=== PATIENT | male | born 1960 | race Caucasian/White ===

== ENCOUNTER 2017-12-24 13:37 | Observation (INO) | payer BC ==
[2017-12-24 14:05] LABS: Basophils % (A) 1 %; Eosinophils # (A) 0.2 k/uL (0-0.7); Eosinophils % (A) 3 %; HCT 42.5 % (39.0-53.0); HGB 14.2 gm/dL (13.0-17.5); Lymphocytes # (A) 1.3 k/uL (1.0-4.8); Lymphocytes % (A) 19 %; MCH 31.4 pg (25.0-35.0); MCHC 33.4 g/dL (31.0-37.0); MCV 93.9 fL (80.0-100.0); Mean Platelet Volume 7.4; Monocytes # (A) 0.5 k/uL (0-1.0); Monocytes % (A) 7 %; Neutrophils # (A) 4.8 k/uL (1.3-7.7); Neutrophils % (A) 69 %; Platelet Count 179 k/uL (150-450); RBC 4.52 m/uL (4.30-5.90); RDW 13.1 % (11.5-15.5); WBC 6.9 k/uL (3.8-10.6)
--- NOTE | 2017-12-24 14:06 | ED ---
Chest Pain HPI - General Chief Complaint: Chest Pain Stated Complaint: CARDIAC ISSUES Time Seen by Provider: 12/24/17 13:38 Source: EMS, RN notes reviewed, old records reviewed Mode of arrival: EMS Limitations: no limitations - History of Present Illness Initial Comments: This is a 57-year-old male the ER for evaluation chest pain anterior chest pain left-sided chest pain with radiation to arm. Patient has history of heart disease feels like prior [place]. No recent travel history no sick contacts of fever cough or congestion. No modifying factors currently for patient's pain MD Complaint: chest pain -: days(s) Onset: during rest Pain Location: substernal, left chest Pain Radiation: LUE Severity: mild Severity scale (1-10): 3 Quality: tightness, similar to prior [place] Improves With: nothing Worsens With: nothing Anginal Symptoms: dyspnea Other Symptoms: palpitations Treatments Prior to Arrival: none - Related Data Home Medications Medication Instructions Recorded Confirmed Nitroglycerin Sl Tabs [Nitrostat] 0.4 mg SUBLINGUAL Q5M PRN 12/23/15 12/24/17 Lisinopril [Zestril] 10 mg PO DAILY 12/24/17 12/24/17 Metoprolol Tartrate 25 mg PO BID 12/24/17 12/24/17 Ticagrelor [Brilinta] 60 mg PO TID 12/24/17 12/24/17 Previous Rx's Medication Instructions Recorded Atorvastatin [Lipitor] 80 mg PO HS #30 tab 07/27/13 Allergies Allergy/AdvReac Type Severity Reaction Status Date / Time No Known Allergies Allergy Verified 12/24/17 14:39 Review of Systems ROS Statement: Those systems with pertinent positive or pertinent negative responses have been documented in the HPI. ROS Other: All systems not noted in ROS Statement are negative. EKG Findings - EKG Comments: EKG Findings:: EKG shows sinus rhythm rate of 66, [place] 180, QRS 100, QTC 436 Past Medical History Past Medical History: Coronary Artery Disease (CAD), Hyperlipidemia, Hypertension History of Any Multi-Drug Resistant Organisms: None Reported Past Surgical History: Coronary Bypass/CABG, Heart Catheterization With Stent, Hernia Repair Additional Past Surgical History / Comment(s): Stent placed on 07/23/2013. Hernia repair at very young age Past Anesthesia/Blood Transfusion Reactions: No Reported Reaction Date of Last Stent Placement:: 07/23/2013 Past Psychological History: Anxiety Smoking Status: Former smoker Past Alcohol Use History: Occasional Past Drug Use History: None Reported - Past Family History Mother Family Medical History: Coronary Artery Disease (CAD), Hyperlipidemia, Hypertension General Exam Limitations: no limitations General appearance: alert, in no apparent distress, anxious Head exam: Present: atraumatic, normocephalic, normal inspection Eye exam: Present: normal appearance, PERRL, EOMI. Absent: scleral icterus, conjunctival injection, periorbital swelling ENT exam: Present: normal exam, mucous membranes moist Neck exam: Present: normal inspection. Absent: tenderness, meningismus, lymphadenopathy Respiratory exam: Present: normal lung sounds bilaterally. Absent: respiratory distress, wheezes, rales, rhonchi, stridor Cardiovascular Exam: Present: regular rate, normal rhythm, normal heart sounds. Absent: systolic murmur, diastolic murmur, rubs, gallop, clicks GI/Abdominal exam: Present: soft, normal bowel sounds. Absent: distended, tenderness, guarding, rebound, rigid Extremities exam: Present: normal inspection, full ROM, normal capillary refill. Absent: tenderness, pedal edema, joint swelling, calf tenderness Back exam: Present: normal inspection Neurological exam: Present: alert, oriented X3, CN II-XII intact Psychiatric exam: Present: normal affect, normal mood Skin exam: Present: warm, dry, intact, normal color. Absent: rash Course Vital Signs 12/24/17 12/24/17 12/24/17 13:39 14:56 16:42 Temperature 98.1 F 97.1 F L 97.4 F L Pulse Rate 58 L 58 L 57 L Respiratory 18 18 18 Rate Blood Pressure 168/77 155/74 183/77 O2 Sat by Pulse 95 98 100 Oximetry - Reevaluation(s) Reevaluation #1: Medical records thoroughly reviewed Patient remains a chest pain Studies Chest x-rays negative for acute disease Chest Pain MDM - MDM 57 male the ER for evaluation positive history of heart disease coming of chest pain. Patient be admitted for cardiac observation anticoagulation Critical Care Time Critical Care Time: Yes Total Critical Care Time: 31 Disposition Clinical Impression: Hx of CABG, Chest pain Disposition: ADMITTED IP TO THIS HOSP Condition: Undetermined Is patient prescribed a controlled substance at d/c from ED?: No
[2017-12-24 14:17] LABS: ALT 41 U/L (21-72); AST 35 U/L (17-59); Albumin 3.8 g/dL (3.5-5.0); Alkaline Phosphatase 67 U/L (38-126); Anion Gap 8 mmol/L; Blood Urea Nitrogen 18 mg/dL (9-20); Calcium 9.4 mg/dL (8.4-10.2); Carbon Dioxide 25 mmol/L (22-30); Chloride 107 mmol/L (98-107); Glucose 110 mg/dL (74-99); Lipase 240 U/L (23-300); Magnesium 1.9 mg/dL (1.6-2.3); Potassium 4.7 mmol/L (3.5-5.1); Sodium 140 mmol/L (137-145); Total Bilirubin 0.6 mg/dL (0.2-1.3); Total Protein 6.6 g/dL (6.3-8.2)
[2017-12-24 14:28] LABS: Creatine Kinase 58 U/L (55-170)
--- NOTE | 2017-12-24 14:33 | XR ---
EXAMINATION TYPE: XR chest 2V DATE OF EXAM: 12/24/2017 COMPARISON: Prior chest x-ray 11/08/2013 HISTORY: Chest pain TECHNIQUE: Frontal and lateral views of the chest are obtained. FINDINGS: There are overlying cardiac leads. Patient is post median sternotomy. There is no focal air space opacity, pleural effusion, or pneumothorax seen. The cardiac silhouette size is within normal limits. The osseous structures are intact. IMPRESSION: No acute cardiopulmonary process.
[2017-12-24 14:41] LABS: Creatine Kinase MB 0.5 ng/mL (0.0-2.4); Troponin I <0.012 ng/mL (0.000-0.034)
[2017-12-24 15:05] LABS: Partial Thromboplastin Time 22.6 sec (22.0-30.0); Prothrombin Time 9.8 sec (9.0-12.0)
[2017-12-24] MEDS ORDERED: MORPHINE SULFATE 4 MG/ML SYRINGE IV PRN (16:08)
[2017-12-24] MEDS ORDERED: ASPIRIN 81 MG PO STA (16:08)
[2017-12-24] MEDS ORDERED: HEPARIN SODIUM,PORCINE 5,000 UNIT/ML 1 ML VIAL IV ONE (16:08)
[2017-12-24] MEDS ORDERED: NITROGLYCERIN SL TABS 0.4 MG TAB SUBLINGUAL PRN ×2 (16:08→18:57)
[2017-12-24] MEDS ORDERED: HEPARIN SODIUM,PORCINE 5,000 UNIT/ML 1 ML VIAL IV PRN (16:08)
[2017-12-24] MEDS ORDERED: BUTALB/APAP/CAFF 50-325-40MG TAB PO STA (16:27)
[2017-12-24] MEDS ORDERED: HEPARIN SOD,PORK IN 0.45% NACL 25,000 UNIT in 0.45% NACL 1 500ML.BAG IV SCH (16:30)
[2017-12-24] MEDS ORDERED: hydrALAZINE HCL 25 MG TAB PO PRN (18:58)
[2017-12-24 20:02] VITALS: RESP 16
[2017-12-24] MEDS ORDERED: ACETAMINOPHEN TAB 325 MG TAB PO PRN (20:04)
[2017-12-24] MEDS: METOPROLOL TARTRATE 25 MG TAB PO SCH (20:18)
[2017-12-24 20:49] LABS: Creatine Kinase 48 U/L (55-170)
[2017-12-24] MEDS ORDERED: ATORVASTATIN 80 MG TAB PO SCH (21:00)
[2017-12-24 21:03] LABS: Creatine Kinase MB 0.5 ng/mL (0.0-2.4); Troponin I <0.012 ng/mL (0.000-0.034)
[2017-12-24] MEDS ORDERED: NON-FORMULARY DRUG (Ticagrelor [Brilinta] 60 MG) PO SCH (22:00)
[2017-12-25 02:49] LABS: Platelet Count 163 k/uL (150-450)
[2017-12-25 03:27] LABS: Creatine Kinase 44 U/L (55-170)
[2017-12-25 03:40] LABS: Creatine Kinase MB 0.5 ng/mL (0.0-2.4); Troponin I <0.012 ng/mL (0.000-0.034)
[2017-12-25 04:54] LABS: Cholesterol 128 mg/dL (<200); HDL Cholesterol 42 mg/dL (40-60); LDL Cholesterol,Calculated 54 mg/dL (0-99); Triglycerides 160 mg/dL (<150)
--- NOTE | 2017-12-25 07:55 | CONS ---
CONSULTATION Mr. Donis is a 57-year-old male with known history of coronary artery disease, status post coronary artery bypass grafting performed 4 years ago, history of stenting of the saphenous vein graft to the right coronary artery shortly after and subsequent total repeat cardiac catheterization that showed occlusion of all the saphenous vein grafts except the ARAUJO to the LAD. He has been doing reasonably well from the cardiac standpoint, has been followed by Dr. Vidal in [place] from the cardiology standpoint and presented yesterday with tingling in the hand and jaw discomfort. This was somewhat different from his anginal symptoms. His breathing has been stable. He denies any associated dizziness or palpitation. He denies any syncope. He has no PND, orthopnea, or peripheral edema. His activity level has been stable. His coronary risk factors are positive for hypertension, hyperlipidemia. He is nonsmoker, nondiabetic. MEDICATION: His medications at home include Zestril 10 mg daily, Lipitor 80 mg daily, Brilinta, metoprolol tartrate 25 mg daily and aspirin 81 mg daily. REVIEW OF SYSTEMS: RESPIRATORY SYSTEM: He has no history of documented asthma, emphysema or bronchitis. GI SYSTEM: No recent GI bleed. No peptic ulcer disease. SYSTEM: No dysuria or hematuria. NERVOUS SYSTEM: No history of stroke or seizure. PHYSICAL EXAMINATION: Blood pressure 138/70 with the heart rate in the 60s. HEAD: Normocephalic. EYES: Sclerae anicteric. NECK: Good carotid upstroke. No bruit. No jugular venous distention. LUNGS: Clear to auscultation. HEART: Regular rate and rhythm. S1, S2. No S3. No rub. ABDOMEN: Soft, nontender. Positive bowel sounds. No organomegaly. EXTREMITIES: No edema. Intact distal pulses. LAB DATA: Lab data revealed a troponin less than 0.012 for 3 samples. Cholesterol 128, LDL 54. BUN and creatinine of 18 and 0.87. Potassium . EKG revealed sinus mechanism with occasional PVCs and nonspecific ST-T wave changes. Chest x-ray shows no acute infiltrate. IMPRESSION: 1. Symptoms of hand tingling and jaw discomfort atypical for ischemic heart disease with no evidence of acute myocardial infarction. 2. Prior history of coronary artery disease. Status post coronary artery bypass grafting with occluded vein graft and patent ARAUJO to the LAD. 3. Hypertension. 4. Hyperlipidemia. RECOMMENDATION: I would recommend to proceed with a myocardial perfusion imaging to further assess his status and will obtain echocardiogram. If there is no evidence of significant changes, then I believe he should be able to be discharged home and follow up with his primary fitter's assistant. Thank you for this consult. We will follow with you. FÉLIX / MITUL: [id number] /
[2017-12-25] MEDS ORDERED: LISINOPRIL 10 MG TAB PO SCH (09:00)
[2017-12-25] MEDS ORDERED: TICAGRELOR 90 MG TAB PO SCH (09:00)
[2017-12-25] MEDS ORDERED: ASPIRIN 81 MG PO SCH (09:00)
[2017-12-25] MEDS ORDERED: ASPIRIN 325 MG TAB PO SCH (09:00)
--- NOTE | 2017-12-25 11:10 | NM ---
EXAMINATION TYPE: NM stress cardiolite complete DATE OF EXAM: 12/25/2017 COMPARISON: NONE HISTORY: Chest pain TECHNIQUE: After the intravenous administration of 10.59 mCi Tc 99m Sestamibi - Rest images obtained 60 minutes post injection. The patient exercised using a JUANITA protocol and 1 minute prior to peak exercise was injected with 25.8 mCi Tc 99m Sestamibi - Stress images obtained 10 minutes post inject ion. FINDINGS: Targeted heart rate was achieved during performance of the study. Review of stress and rest SPECT newton ges demonstrates fixed defect involving the inferior wall myocardium. Gated analysis shows normal wa ll motion with an estimated left ventricular ejection fraction of 53 %. IMPRESSION: 1. Small area of fixed defect involving the inferior myocardium. Tiny area of reversibility in the re gion not entirely excluded correlate clinically.
[2017-12-25] MEDS: METOPROLOL TARTRATE 25 MG TAB PO SCH (11:37)
[2017-12-25 11:50] VITALS: BP 110/70; PULSE 67; TEMP 98
--- NOTE | 2017-12-25 12:21 | ECHOF ---
Referral Reason:cad MEASUREMENTS -------- HEIGHT: 188.0 cm WEIGHT: 108.0 kg BP: 122/66 RVIDd: 3.2 cm (< 3.3) IVSd: 1.4 cm (0.6 - 1.1) LVIDd: 5.9 cm (3.9 - 5.3) LVPWd: 1.4 cm (0.6 - 1.1) IVSs: 2.0 cm LVIDs: 4.2 cm LVPWs: 1.9 cm LAESV Index (A-L): 17.62 ml/m Ao Diam: 3.5 cm (2.0 - 3.7) AV Cusp: 2.4 cm (1.5 - 2.6) LA Diam: 4.1 cm (2.7 - 3.8) EPSS: 0.9 cm MV E Elliott: 0.89 m/s MV DecT: 197 ms MV A Elliott: 0.93 m/s MV E/A Ratio: 0.96 RAP: 5.00 mmHg RVSP: 23.17 mmHg MV EF SLOPE: 59.52 mm/s (70 - 150) MV EXCURSION: 1.85 cm (> 18.000) FINDINGS -------- Sinus rhythm. This was a technically adequate study. The left ventricular size is normal. There is mild concentric left ventricular hypertrophy. Overa ll left ventricular systolic function is low-normal with, an EF between 50 - 55 %. Basal inferior L V wall motion is hypokinetic. The right ventricle is normal in size and function. Normal LA size by volume 22+/-6 ml/m2. The right atrium is normal in size. Aortic valve is trileaflet and is mildly thickened. There is mild aortic regurgitation. There is no evidence of aortic stenosis. The mitral valve leaflets are mildly thickened. Mild mitral regurgitation is present. Trace tricuspid regurgitation present. Right ventricular systolic pressure is normal at < 35 mmHg. The right ventricular systolic pressure, as measured by Doppler, is 23.17mmHg. Trace/mild (physiologic) pulmonic regurgitation. The aortic root size is normal. IVC Not well visulized. There is no pericardial effusion. CONCLUSIONS -------- 1. Sinus rhythm. 2. This was a technically adequate study. 3. The left ventricular size is normal. 4. There is mild concentric left ventricular hypertrophy. 5. Overall left ventricular systolic function is low-normal with, an EF between 50 - 55 %. 6. Basal inferior LV wall motion is hypokinetic. 7. Normal LA size by volume 22+/-6 ml/m2. 8. Aortic valve is trileaflet and is mildly thickened. 9. There is mild aortic regurgitation. 10. The mitral valve leaflets are mildly thickened. 11. Mild mitral regurgitation is present. 12. Trace tricuspid regurgitation present. 13. Right ventricular systolic pressure is normal at < 35 mmHg. 14. Trace/mild (physiologic) pulmonic regurgitation. 15. The aortic root size is normal. 16. IVC Not well visulized. 17. There is no pericardial effusion. INSIDE [employer]REL LATHE OPERATOR: Kenneth Key RDCS
--- NOTE | 2017-12-25 14:16 | P.HPIM ---
History of Present Illness 52-year-old gentleman with a known history of coronary artery disease and recent CABG about 4 years ago and stenting of saphenous venous graft to the right coronary artery and occlusion of saphenous venous grafts except for ARAUJO to LAD in the past came in because of a brief episode of tingling in his GI as well as tingling in his left hand. Patient denied any other weakness or tingling numbness. When EMS arrived his heart rate was bit high with PVCs because of which patient was brought to ER. Because of his risk factors patient was admitted to hospital for rule out acute coronary syndromes patient was evaluated cardiology echocardiac exam was opted which did not show any significant abnormality except for inferior wall hypokinesis which appeared to be older and had a stress test which showed a fixed defect in inferior wall and if cleared by cardiology patient will be discharged today patient doesn't have any more symptoms at this point of time patient denied any short of breath orthopnea paroxysmal nocturnal dyspnea cough runny nose. Review of Systems REVIEW OF SYSTEMS: CONSTITUTIONAL: No fever, no malaise, no fatigue. HEENT: No recent visual problems or hearing problems. Denied any sore throat. CARDIOVASCULAR: No chest pain, orthopnea, PND, no palpitations, no syncope. PULMONARY: No shortness of breath, no cough, no hemoptysis. GASTROINTESTINAL: No diarrhea, no nausea, no vomiting, no abdominal pain. Normoactive bowel sounds. NEUROLOGICAL: No headaches, no weakness, no numbness. HEMATOLOGICAL: Denies any bleeding or petechiae. GENITOURINARY: Denies any burning micturition, frequency, or urgency. MUSCULOSKELETAL/RHEUMATOLOGICAL: Denies any joint pain, swelling, or any muscle pain. ENDOCRINE: Denies any polyuria or polydipsia. The rest of the 14-point review of systems is negative. Past Medical History Past Medical History: Coronary Artery Disease (CAD), Chest Pain / Angina, Hyperlipidemia, Hypertension, Myocardial Infarction (SD) Additional Past Medical History / Comment(s): basal and squamous skin cancer shoulder/back-removed, "heartburn", anxiety Last Myocardial Infarction Date:: 2013 History of Any Multi-Drug Resistant Organisms: None Reported Past Surgical History: Coronary Bypass/CABG, Heart Catheterization With Stent, Hernia Repair Additional Past Surgical History / Comment(s): quad cabg. Stent placed to svg to rca in 07/2013. Hernia repair at very young age, wisom teeth extracted Past Anesthesia/Blood Transfusion Reactions: No Reported Reaction Additional Past Anesthesia/Blood Transfusion Reaction / Comment(s): clausterphobia Date of Last Stent Placement:: 07/23/2013 Smoking Status: Former smoker - Past Family History Mother Family Medical History: Coronary Artery Disease (CAD), Hyperlipidemia, Hypertension Medications and Allergies Home Medications Medication Instructions Recorded Confirmed Type Atorvastatin [Lipitor] 80 mg PO HS #30 tab 07/27/13 12/24/17 Rx Nitroglycerin Sl Tabs [Nitrostat] 0.4 mg SUBLINGUAL Q5M PRN 12/23/15 12/24/17 History Lisinopril [Zestril] 10 mg PO DAILY 12/24/17 12/24/17 History Metoprolol Tartrate 25 mg PO BID 12/24/17 12/24/17 History Ticagrelor [Brilinta] 60 mg PO TID 12/24/17 12/24/17 History Allergies Allergy/AdvReac Type Severity Reaction Status Date / Time No Known Allergies Allergy Verified 12/24/17 14:39 Physical Exam Vitals: Vital Signs Temp Pulse Pulse Resp BP BP Pulse Ox 12/25/17 11:49 98 F 67 16 110/70 96 12/25/17 08:00 16 12/25/17 07:16 98.4 F 57 L 16 138/70 99 12/25/17 03:30 97.5 F L 53 L 16 122/66 98 12/25/17 00:00 16 12/24/17 23:30 98.4 F 51 L 16 125/70 99 12/24/17 20:00 16 12/24/17 19:00 97.7 F 54 L 16 134/73 97 12/24/17 17:46 98 12/24/17 17:22 97.5 F L 56 L 18 163/99 99 12/24/17 16:42 97.4 F L 57 L 18 183/77 100 12/24/17 14:56 97.1 F L 58 L 18 155/74 98 Intake and Output 12/24/17 12/25/17 12/25/17 22:59 06:59 14:59 Intake Total 222 143.334 200 Balance 222 143.334 200 Intake: Intake, IV Titration 143.334 Amount Heparin Sod,Pork in 0.45% 143.334 NaCl 25,000 unit In 0.45 % NaCl 1 500ml.bag @ 9 UNITS/KG/HR 19.59 mls/hr IV .Q24H [facility] Rx#: [id number] Oral 222 200 Other: Voiding Method Toilet Toilet Toilet # Voids 1 0 Weight 108 kg 107.955 kg PHYSICAL EXAMINATION: GENERAL: The patient is alert and oriented x3, not in any acute distress. Well developed, well nourished. HEENT: Pupils are round and equally reacting to light. EOMI. No scleral icterus. No conjunctival pallor. Normocephalic, atraumatic. No pharyngeal erythema. No thyromegaly. CARDIOVASCULAR: S1 and S2 present. No murmurs, rubs, or gallops. PULMONARY: Chest is clear to auscultation, no wheezing or crackles. ABDOMEN: Soft, nontender, nondistended, normoactive bowel sounds. No palpable organomegaly. MUSCULOSKELETAL: No joint swelling or deformity. EXTREMITIES: No cyanosis, clubbing, or pedal edema. NEUROLOGICAL: Gross neurological examination did not reveal any focal deficits. SKIN: No rashes. Results CBC & Chem 7: 12/25/17 02:20 12/24/17 13:44 Labs: Abnormal Lab Results - Last 24 Hours (Table) 12/24/17 12/24/17 12/24/17 Range/Units 13:44 19:41 23:15 APTT 37.8 H (22.0-30.0) sec Glucose 110 H (74-99) mg/dL Total Creatine Kinase 48 L (55-170) U/L Triglycerides (<150) mg/dL 12/25/17 12/25/17 12/25/17 Range/Units 02:16 02:20 06:37 APTT 58.9 H (22.0-30.0) sec Glucose (74-99) mg/dL Total Creatine Kinase 44 L (55-170) U/L Triglycerides 160 H (<150) mg/dL Thrombosis Risk Factor Assmnt - Choose All That Apply Any of the Below Risk Factors Present?: Yes Each Factor Represents 1 point: Age 41-60 years Other Risk Factors: No Thrombosis Risk Factor Assessment Total Risk Factor Score: 1 Thrombosis Risk Factor Assessment Level: Low Risk Assessment and Plan Plan: Ruled out acute coronary syndromes, unstable angina: Management as mentioned above cleared by cardiology patient will be discharged stress test results as mentioned above -Tingling in the GI and tingling in the left hand not consistent with TIA had a stroke symptom probably peripheral nerve related and and was only a temporary episode which resolved. -Coronary artery disease with CABG and stents in the past -Hypertension -Hyperlipidemia -Anxiety disorder Patient is clinically doing well no changes in medications are being made will be discharged today in stable medical condition to home to follow with PCP and cardiology as an outpatient
--- NOTE | 2017-12-25 14:16 | P.DS ---
Providers Date of admission: 12/24/17 16:08 Attending physician: Valentin Wallace Consults: 12/24/17 16:08 Consult Physician Urgent Consulting Provider: Azael Maldonado Consult Reason/Comments: cp Do you want consulting provider notified?: Yes Primary care physician: Marty Bacon [facility] Course: Please refer to my HPI Patient Condition at Discharge: Undetermined Plan - Discharge Summary Discharge Rx Participant: No New Discharge Prescriptions: No Action Atorvastatin [Lipitor] 80 mg PO HS #30 tab Nitroglycerin Sl Tabs [Nitrostat] 0.4 mg SUBLINGUAL Q5M PRN PRN Reason: Pain Control Ticagrelor [Brilinta] 60 mg PO TID Metoprolol Tartrate 25 mg PO BID Lisinopril [Zestril] 10 mg PO DAILY Discharge Medication List Atorvastatin [Lipitor] 80 mg PO HS #30 tab 07/27/13 [Rx] Nitroglycerin Sl Tabs [Nitrostat] 0.4 mg SUBLINGUAL Q5M PRN 12/23/15 [History] Lisinopril [Zestril] 10 mg PO DAILY 12/24/17 [History] Metoprolol Tartrate 25 mg PO BID 12/24/17 [History] Ticagrelor [Brilinta] 60 mg PO TID 12/24/17 [History] Follow up Appointment(s)/Referral(s): Marty Bacon DO [Primary Care Provider] - 1-2 days Patient Instructions/Handouts: Chest Pain (ED) Discharge Disposition: HOME SELF-CARE
--- NOTE | 2017-12-25 14:37 | EST ---
EXERCISE STRESS AGE: 57 SEX: M HT: 74" WT: 238 PROTOCOL: Cardiolite Sanjiv Study STAGE: 3 DURATION OF EXERCISE: 8:10 HEART RATE REST: 69 BLOOD PRESSURE REST: 139/75 MAXIMUM HEART RATE ACHIEVED: 141 MAXIMUM BLOOD PRESSURE: 186/76 85% MPHR: 140 100% MPHR: 165 METS: 9.9 INDICATIONS: Chest pain. CLINICAL INFORMATION: Baseline rhythm is sinus mechanism, rate of 69, there are normal axis and intervals, poor R-wave progression, baseline blood pressure 139/75 mmHg. Patient exercised on Sanjiv protocol for 8 minutes, 10 seconds, reaching a peak rate of 141 beats per minute which is equal to 85% maximum predicted heart rate. Peak blood pressure 186/76 mmHg. Test was terminated due to fatigue. There were no chest pains. Electrocardiograph monitoring revealed rare PVCs. There was a [address]- segment depression at peak exercise that resolved gradually in recovery Cardiolite was injected at peak exercise. CONCLUSION: 1. Average exercise tolerance with occasional premature ventricular contractions and mildly positive electrocardiograph stress testing. 2. Nuclear images will be reported separately. MMODL / IJN: [id number] /
== END 2017-12-25 15:00 | disposition home or self-care (01) ==
LOC: EC 13:37 → SUPCPDRO 13:37 → 3OBS 16:08
PROVIDERS: ADMIT Hospitalist; ATTEND Hospitalist
DX: R07.89 Other chest pain (principal); R20.2 Paresthesia of skin; R68.84 Jaw pain; I49.3 Ventricular premature depolarization; I25.10 Atherosclerotic heart disease of native coronary artery without angina pectoris; I10 Essential (primary) hypertension; T82.897A Other specified complication of cardiac prosthetic devices, implants and grafts, initial encounter; R12 Heartburn; E78.5 Hyperlipidemia, unspecified; F41.9 Anxiety disorder, unspecified; I25.2 Old myocardial infarction; Z79.02 Long term (current) use of antithrombotics/antiplatelets; Z79.899 Other long term (current) drug therapy; Z95.5 Presence of coronary angioplasty implant and graft; Z95.1 Presence of aortocoronary bypass graft; Z87.891 Personal history of nicotine dependence; Z85.828 Personal history of other malignant neoplasm of skin; Z82.49 Family history of ischemic heart disease and other diseases of the circulatory system; Z83.49 Family history of other endocrine, nutritional and metabolic diseases
CPT/HCPCS: 96366 ×2; 96376; 96365; 99291; 36415; 93005; 93017; 93306; 80061; 80053; 82550 ×2; 82553 ×2; 83690; 83735; 84484 ×2; 85025; 85049; 85610; 85730 ×2; 71046; 78452; G0378 ×2; A9500; J1644 ×2

== ENCOUNTER 2019-11-30 00:49 | Observation (INO) | payer BC ==
--- NOTE | 2019-11-30 01:07 | XR ---
EXAMINATION TYPE: XR chest 2V DATE OF EXAM: 11/30/2019 COMPARISON: 12/24/2017 HISTORY: Chest pain TECHNIQUE: FINDINGS: There is no heart failure nor confluent pneumonic infiltrate. Costophrenic angles are clear . There are sternal wires. Heart size is normal. Bony thorax is intact. There are chest leads. IMPRESSION: No active cardiopulmonary disease. Normal heart. No change.
[2019-11-30 01:09] LABS: Basophils # (A) 0.1 k/uL (0-0.2); Basophils % (A) 1 %; Eosinophils # (A) 0.4 k/uL (0-0.7); Eosinophils % (A) 5 %; HCT 41.7 % (39.0-53.0); HGB 13.6 gm/dL (13.0-17.5); Lymphocytes # (A) 2.6 k/uL (1.0-4.8); Lymphocytes % (A) 34 %; MCHC 32.5 g/dL (31.0-37.0); MCV 95.4 fL (80.0-100.0); Mean Platelet Volume 8.2; Monocytes # (A) 0.6 k/uL (0-1.0); Monocytes % (A) 7 %; Neutrophils % (A) 52 %; Platelet Count 159 k/uL (150-450); RBC 4.37 m/uL (4.30-5.90); RDW 13.4 % (11.5-15.5); WBC 7.7 k/uL (3.8-10.6)
[2019-11-30 01:20] LABS: ALT 30 U/L (4-49); AST 43 U/L (17-59); African American GFR (CKD) >90 (>60 ml/min/1.73 sqM); Alkaline Phosphatase 61 U/L (38-126); Anion Gap 6 mmol/L; Blood Urea Nitrogen 18 mg/dL (9-20); Calcium 9.1 mg/dL (8.4-10.2); Carbon Dioxide 24 mmol/L (22-30); Chloride 108 mmol/L (98-107); Glucose 111 mg/dL (74-99); Non-African American GFR(CKD) >90 (>60 ml/min/1.73 sqM); Sodium 138 mmol/L (137-145); Total Bilirubin 0.8 mg/dL (0.2-1.3); Total Protein 6.6 g/dL (6.3-8.2)
[2019-11-30 01:28] LABS: INR 0.9 (<1.2); Partial Thromboplastin Time 24.5 sec (22.0-30.0); Prothrombin Time 9.6 sec (9.0-12.0)
[2019-11-30 02:02] LABS: Potassium 5.6 mmol/L (3.5-5.1)
[2019-11-30] MEDS ORDERED: HEPARIN SODIUM,PORCINE 5,000 UNIT/ML 1 ML VIAL IV ONE (02:04)
[2019-11-30] MEDS ORDERED: NITROGLYCERIN SL TABS 0.4 MG TAB SUBLINGUAL PRN ×3 (02:04→10:18)
[2019-11-30] MEDS ORDERED: HEPARIN SODIUM,PORCINE 5,000 UNIT/ML 1 ML VIAL IV PRN (02:09)
[2019-11-30] MEDS: HEPARIN SOD,PORK IN 0.45% NACL 25,000 UNIT in 0.45% NACL 1 250ML.BAG IV SCH ×2 (02:57→23:11)
--- NOTE | 2019-11-30 03:14 | ED ---
Chest Pain HPI - General Chief Complaint: Chest Pain Stated Complaint: Chest Pain Time Seen by Provider: 11/30/19 00:50 Source: patient, EMS Mode of arrival: EMS Limitations: no limitations - History of Present Illness Initial Comments: Ronal is a 59-year-old male with a known history of coronary artery disease stenting in the past, patient presents to ER today for evaluation of chest pain that woke him from sleep. Patient reports left-sided chest pain that started suddenly and woke him from sleep. Patient reports he took aspirin and a sublingual nitro at home but had no relief from the pain. He does note that he believes his nitro was as it did not cause any tingling under his tongue. Patient and his then became concerned and EMS was contacted. EMS gave the patient additional dose of nitro patient reports by the time EMS arrived his chest pain was improving and improved further with nitro. Patient denies any associated lightheadedness, diaphoresis or shortness of breath. Denies any recent illness, denies any cough, fevers, chills, abdominal pain, nausea or vomiting. Patient reports he takes aspirin and [employer] to daily he reports he is compliant with all his medications. He follows with cardiology out of [facility] but has been seen by cardiology in our facility as well. - Related Data Home Medications Medication Instructions Recorded Confirmed Nitroglycerin Sl Tabs [Nitrostat] 0.4 mg SUBLINGUAL Q5M PRN 12/23/15 12/24/17 Metoprolol Tartrate 25 mg PO BID 12/24/17 12/24/17 Ticagrelor [Brilinta] 60 mg PO TID 12/24/17 12/24/17 lisinopriL [Zestril] 10 mg PO DAILY 12/24/17 12/24/17 Previous Rx's Medication Instructions Recorded Atorvastatin [Lipitor] 80 mg PO HS #30 tab 07/27/13 Allergies Allergy/AdvReac Type Severity Reaction Status Date / Time No Known Allergies Allergy Verified 12/24/17 14:39 Review of Systems ROS Statement: Those systems with pertinent positive or pertinent negative responses have been documented in the HPI. ROS Other: All systems not noted in ROS Statement are negative. EKG Findings - EKG Comments: EKG Findings:: EKG was obtained due to complaint of chest pain, EKG was obtained at 12:52 AM, rate is 50 rhythm sinus bradycardia there is a normal axis, normal intervals, NC 176, QRS 90, QTC 42 there are no acute ST elevations or depressions no evidence of ischemia or infarction. Past Medical History Past Medical History: Coronary Artery Disease (CAD), Hyperlipidemia, Hypertension Additional Past Medical History / Comment(s): basal and squamous skin cancer shoulder/back-removed, "heartburn", anxiety Last Myocardial Infarction Date:: 2013 History of Any Multi-Drug Resistant Organisms: None Reported Past Surgical History: Coronary Bypass/CABG, Heart Catheterization With Stent, Hernia Repair Additional Past Surgical History / Comment(s): Stent placed on 07/23/2013. Hernia repair at very young age Past Anesthesia/Blood Transfusion Reactions: No Reported Reaction Additional Past Anesthesia/Blood Transfusion Reaction / Comment(s): clausterphobia Date of Last Stent Placement:: 07/23/2013 Past Psychological History: Anxiety Smoking Status: Former smoker Past Alcohol Use History: Daily Past Drug Use History: None Reported - Past Family History Mother Family Medical History: Coronary Artery Disease (CAD), Hyperlipidemia, Hypertension General Exam - General Exam Comments Initial Comments: Physical Exam GENERAL: Patient is well-developed and well-nourished. Patient is nontoxic and well-hydrated and is in no distress. HENT: Normocephalic, Atraumatic. EYES: PERRL, EOMI PULMONARY: Unlabored respirations. No audible rales rhonchi or wheezing was noted. CARDIOVASCULAR: There is a regular rate and rhythm without any murmurs gallops or rubs. ABDOMEN: Soft and nontender with normal bowel sounds. SKIN: Skin is clear with no lesions or rashes and otherwise unremarkable. : Deferred NEUROLOGIC: Patient is alert and oriented x3. Moving all extremities spontaneously MUSCULOSKELETAL: Normal extremities with adequate strength and full range of motion. No lower extremity swelling or edema. No calf tenderness. PSYCHIATRIC: Normal psychiatric evaluation. Limitations: no limitations Course Vital Signs 11/30/19 11/30/19 11/30/19 00:49 01:16 02:06 Temperature 98.4 F Pulse Rate 59 L 63 Pulse Rate [ 55 L [employer] Hands ] Respiratory 18 18 Rate Blood Pressure 172/87 165/86 O2 Sat by Pulse 99 98 Oximetry Chest Pain [facility] - MDM The patient was seen and evaluated, history is obtained from the patient History is concerning for cardiac etiology of pain given that the patient has significant history and chest pain that seemed to improve after nitro EKG appears nonischemic Patient was chest pain-free upon arrival Labs were obtained and resulted with a mildly elevated troponin Given the patient's history of known coronary artery disease, chest pain that occurred without provocation and elevated troponin we will plan to admit for acute coronary syndrome. Patient will be placed on heparin. A consult to cardiology will be placed. Disposition Clinical Impression: Chest pain Disposition: ADMITTED IP TO THIS HOSP Condition: Stable Is patient prescribed a controlled substance at d/c from ED?: No
[2019-11-30] MEDS: lisinopriL 10 MG TAB PO SCH (09:03)
[2019-11-30] MEDS: METOPROLOL TARTRATE 25 MG TAB PO SCH ×2 (09:03→22:32)
[2019-11-30] MEDS ORDERED: ALPRAZolam 0.5 MG TAB PO PRN (10:18)
[2019-11-30] MEDS ORDERED: SODIUM CHLORIDE 0.9% 1,000 ML in EMPTY BAG 1 BAG IV ONE (10:18)
[2019-11-30] MEDS ORDERED: ALPRAZolam 0.25 MG TAB PO PRN (10:18)
[2019-11-30] MEDS ORDERED: ASPIRIN 325 MG TAB PO STA (10:18)
[2019-11-30] MEDS: ATORVASTATIN 80 MG TAB PO STA ×2 (10:35→10:57)
[2019-11-30 10:36] LABS: Glucose,Whole Blood 105 mg/dL (75-99)
--- NOTE | 2019-11-30 10:58 | P.HPIM ---
History of Present Illness This is a pleasant 59-year-old male came in with compensative chest pain in the side of the chest more in severity and he woke up from sleep because of this chest pain. Patient had a previous history of coronary artery disease stents in the past as well as CABG in the past patient last stress test was in 2018 patient is found to have mildly elevated troponin because of which patient was started on IV heparin and patient is going for cardiac catheterization today. Patient denied any associated lightheadedness diaphoresis or shortness of breath associated with his chest pain chest pain is pressure-like sensation patient doesn't have any associated nausea or vomiting. Patient doesn't have pneumonia on the chest x-ray.. Review of Systems I REVIEW OF SYSTEMS: CONSTITUTIONAL: No fever, no malaise, no fatigue. HEENT: No recent visual problems or hearing problems. Denied any sore throat. CARDIOVASCULAR: No orthopnea, PND, no palpitations, no syncope. PULMONARY: No shortness of breath, no cough, no hemoptysis. GASTROINTESTINAL: No diarrhea, no nausea, no vomiting, no abdominal pain. NEUROLOGICAL: No headaches, no weakness, no numbness. HEMATOLOGICAL: Denies any bleeding or petechiae. GENITOURINARY: Denies any burning micturition, frequency, or urgency. MUSCULOSKELETAL/RHEUMATOLOGICAL: Denies any joint pain, swelling, or any muscle pain. ENDOCRINE: Denies any polyuria or polydipsia. The rest of the 14-point review of systems is negative. Past Medical History Past Medical History: Coronary Artery Disease (CAD), Hyperlipidemia, Hyper tension Additional Past Medical History / Comment(s): basal and squamous skin cancer shoulder/back-removed, "heartburn", anxiety Last Myocardial Infarction Date:: 2013 History of Any Multi-Drug Resistant Organisms: None Reported Past Surgical History: Coronary Bypass/CABG, Heart Catheterization With Stent, Hernia Repair Additional Past Surgical History / Comment(s): Stent placed on 07/23/2013. Hernia repair at very young age Past Anesthesia/Blood Transfusion Reactions: No Reported Reaction Additional Past Anesthesia/Blood Transfusion Reaction / Comment(s): clausterphobia Date of Last Stent Placement:: 07/23/2013 Past Psychological History: Anxiety Smoking Status: Former smoker Past Alcohol Use History: Daily Past Drug Use History: None Reported - Past Family History Mother Family Medical History: Coronary Artery Disease (CAD), Hyperlipidemia, Hypertension Medications and Allergies Home Medications Medication Instructions Recorded Confirmed Type Atorvastatin [Lipitor] 80 mg PO HS #30 tab 07/27/13 11/30/19 Rx Nitroglycerin Sl Tabs [Nitrostat] 0.4 mg SUBLINGUAL Q5M PRN 12/23/15 11/30/19 History Metoprolol Tartrate 25 mg PO BID 12/24/17 11/30/19 History Ticagrelor [Brilinta] 60 mg PO BID 12/24/17 11/30/19 History lisinopriL [Zestril] 10 mg PO DAILY 12/24/17 11/30/19 History Aspirin EC [Ecotrin Low Dose] 81 mg PO DAILY 11/30/19 11/30/19 History Montelukast [Singulair] 10 mg PO DAILY 11/30/19 11/30/19 History Allergies Allergy/AdvReac Type Severity Reaction Status Date / Time No Known Allergies Allergy Verified 11/30/19 08:38 Physical Exam Vitals: Vital Signs Temp Pulse Pulse Resp BP BP Pulse Ox 11/30/19 09:00 98.0 F 63 16 150/89 98 11/30/19 04:00 97.6 F 51 L 18 134/79 97 11/30/19 02:18 97.6 F 51 L 18 134/74 97 11/30/19 02:06 63 18 165/86 98 11/30/19 01:16 55 L 11/30/19 00:49 98.4 F 59 L 18 172/87 99 Intake and Output 11/29/19 11/30/19 11/30/19 22:59 06:59 14:59 Intake Total 59.604 Balance 59.604 Intake: Intake, IV Titration 59.604 Amount Heparin Sod,Pork in 0.45% 59.604 NaCl 25,000 unit In 0.45 % NaCl 1 250ml.bag @ 9 UNITS/KG/HR 9.798 mls/hr IV .Q24H [facility] Rx#: [id number] Other: Voiding Method Toilet Toilet Weight 111.7 kg PHYSICAL EXAMINATION: GENERAL: The patient is alert and oriented x3, not in any acute distress. Well developed, well nourished. HEENT: Pupils are round and equally reacting to light. EOMI. No scleral icterus. No conjunctival pallor. Normocephalic, atraumatic. No pharyngeal erythema. No thyromegaly. CARDIOVASCULAR: S1 and S2 present. No murmurs, rubs, or gallops. PULMONARY: Chest is clear to auscultation, no wheezing or crackles. ABDOMEN: Soft, nontender, nondistended, normoactive bowel sounds. No palpable organomegaly. MUSCULOSKELETAL: No joint swelling or deformity. EXTREMITIES: No cyanosis, clubbing, or pedal edema. NEUROLOGICAL: Gross neurological examination did not reveal any focal deficits. SKIN: No rashes. Results CBC & Chem 7: 11/30/19 00:55 11/30/19 00:55 Labs: Abnormal Lab Results - Last 24 Hours (Table) 11/30/19 11/30/19 11/30/19 Range/Units 00:55 00:55 07:46 APTT 41.4 H (22.0-30.0) sec Potassium 5.6 H (3.5-5.1) mmol/L Chloride 108 H (98-107) mmol/L Glucose 111 H (74-99) mg/dL POC Glucose (mg/dL) (75-99) mg/dL Troponin I 0.041 H* (0.000-0.034) ng/mL 11/30/19 Range/Units 10:35 APTT (22.0-30.0) sec Potassium (3.5-5.1) mmol/L Chloride (98-107) mmol/L Glucose (74-99) mg/dL POC Glucose (mg/dL) 105 H (75-99) mg/dL Troponin I (0.000-0.034) ng/mL Thrombosis Risk Factor Assmnt - Choose All That Apply Any of the Below Risk Factors Present?: Yes Each Factor Represents 1 point: Age 41-60 years Other Risk Factors: No Other congenital or acquired thrombophilia - If yes, enter type in comment: No Thrombosis Risk Factor Assessment Total Risk Factor Score: 1 Thrombosis Risk Factor Assessment Level: Low Risk Assessment and Plan Plan: -Possible non-ST elevation microinfarction with mildly elevated troponin and patient will continued on IV heparin patient will undergo cardiac catheterization continue with the antiplatelet therapy beta desi and statin. -Hyperkalemia: Secondary to hemolysis we'll repeat potassium if continues to be higher will hold off on lisinopril -Hypertension -Hyperlipidemia -History of coronary artery disease with previous stents and coronary artery bypass grafting in the past
--- NOTE | 2019-11-30 11:00 | ECHOF ---
Referral Reason:lv function MEASUREMENTS -------- HEIGHT: 182.9 cm WEIGHT: 111.6 kg BP: 134/79 RVIDd: 3.4 cm (< 3.3) IVSd: 1.1 cm (0.6 - 1.1) LVIDd: 5.8 cm (3.9 - 5.3) LVPWd: 1.4 cm (0.6 - 1.1) IVSs: 1.6 cm LVIDs: 5.0 cm LVPWs: 1.5 cm LA Diam: 4.1 cm (2.7 - 3.8) Ao Diam: 3.1 cm (2.0 - 3.7) AV Cusp: 2.0 cm (1.5 - 2.6) MV EXCURSION: 27.722 mm (> 18.000) MV EF SLOPE: 58 mm/s (70 - 150) EPSS: 0.7 cm MV E Elliott: 0.67 m/s MV DecT: 136 ms MV A Elliott: 0.94 m/s MV E/A Ratio: 0.71 RAP: 5.00 mmHg RVSP: 10.25 mmHg FINDINGS -------- Sinus rhythm. This was a techncally difficult study with suboptimal views, , Lumason utilized for enhancement of im ages. The left ventricular size is normal. There is borderline concentric left ventricular hypertrophy. Overall left ventricular systolic function is mild-moderately impaired with, an EF between 40 - 45 % . Basal Inferolateral, Inferior Basal. The right ventricle is normal in size. The left atrium is mildly dilated. The right atrial size is normal. The aortic valve is trileaflet, and appears structurally normal. No aortic stenosis or regurgitation. Mild mitral regurgitation is present. Mild tricuspid regurgitation present. Right ventricular systolic pressure is normal at < 35 mmHg. There is no pulmonic regurgitation present. The aortic root size is normal. There is no pericardial effusion. CONCLUSIONS -------- 1. This was a techncally difficult study with suboptimal views, , Lumason utilized for enhancement of images. 2. The left ventricular size is normal. 3. There is borderline concentric left ventricular hypertrophy. 4. Overall left ventricular systolic function is mild-moderately impaired with, an EF between 40 - 45 %. 5. Basal Inferolateral, Inferior Basal. 6. The right ventricle is normal in size. 7. The left atrium is mildly dilated. 8. The right atrial size is normal. 9. Mild mitral regurgitation is present. 10. Mild tricuspid regurgitation present. 11. Right ventricular systolic pressure is normal at < 35 mmHg. HOTEL NIGHT AUDITOR: Archana Massey RDCS
[2019-11-30] MEDS ORDERED: IV FLUID CONTINUATION 1,000 ML IV ONE (11:03)
[2019-11-30] MEDS ORDERED: fentaNYL (PF) 50 MCG/ML 2 ML AMP IV ONE ×2 (11:28)
[2019-11-30] MEDS ORDERED: MIDAZOLAM 2 MG/2 ML VIAL IV ONE (11:28)
[2019-11-30] MEDS ORDERED: LIDOCAINE 1% INJ 10MG/ML (20 ML MDV) SQ ONE (11:30)
[2019-11-30] MEDS ORDERED: VERAPAMIL SYRINGE (5 MG/10 ML) INTRAARTER ONE (11:33)
[2019-11-30] MEDS ORDERED: HEPARIN SODIUM 1,000 UN/ML (10ML VL) IV ONE ×2 (11:36)
[2019-11-30 11:41] LABS: African American GFR (CKD) >90 (>60 ml/min/1.73 sqM); Anion Gap 7 mmol/L; Blood Urea Nitrogen 17 mg/dL (9-20); Calcium 9.3 mg/dL (8.4-10.2); Carbon Dioxide 26 mmol/L (22-30); Chloride 108 mmol/L (98-107); Glucose 109 mg/dL (74-99); Non-African American GFR(CKD) >90 (>60 ml/min/1.73 sqM); Potassium 4.5 mmol/L (3.5-5.1); Sodium 141 mmol/L (137-145)
[2019-11-30] MEDS ORDERED: IOPAMIDOL-370 125ML BTL INJ ONE (12:11)
[2019-11-30] MEDS ORDERED: RX INFO: IV CONTRAST WAS GIVEN 1 EACH MISC MISCELLANE PRN (12:33)
--- NOTE | 2019-11-30 13:07 | P.CARDCATH ---
Date of Procedure: 11/30/19 Description of Procedure: PROCEDURES PERFORMED: Left heart catheterization, bilateral coronary angiography, SVG to diagonal and ARAUJO to LAD angiography INDICATION: Unstable angina with elevated troponins HISTORY: Patient is a pleasant 59-year-old male with a history of coronary artery disease status post CABG in 2013 and additional PCI of the SVG to RCA in July 2013 with stenting of the proximal SVG as well as the anastomosis from SVG into RCA. During last catheterization from August 2013 his SVG to OM for was noted to be occluded with his only remaining grafts being ARAUJO to LAD and SVG to diagonal. He presented with episodes of chest pain or last 2 days which were not as intense as prior myocardial infarctions however had been persistent and therefore presented to emergency department. His first troponin was noted to be mildly elevated at 0.041 however his second troponin was less than 0.012. Due to concern of unstable angina and abnormal troponin heart catheterization was recommended and patient was agreeable. PROCEDURE: After the risks, benefits and alternatives of the above mentioned procedure explained in detail with the patient, informed consent was obtained. Patient was taken to the catheterization lab and prepped and draped in usual fashion. 1% lidocaine was used to anesthetize the left radial artery. A 6- [place] sheath was placed in the right radial artery using modified Seldinger technique. Left coronary angiography was performed with a 5-[place] JL 4 catheter and right coronary angiography was performed with a 5-[place] JR5 catheter in various views. The JR 5 catheter was used to engage the SVG to diagonal and ARAUJO to LAD and angiography was performed in multiple views. The JR 5 was advanced into the left ventricle and pressure measurements were obtained. Angiography revealed old disease without any new lesions to explain his symptoms and therefore felt best treated medically. The left radial sheath was removed and a TR band was placed with hemostasis achieved. The patient tolerated the procedure well. Patient was transported back to the post cathete rization holding area in stable condition. Conscious Sedation: Patient was monitored under the direct supervision of vision of myself for conscious sedation using 2 mg Versed and 25 mcg fentanyl for a total duration of 19 minutes HEMODYNAMICS: Aorta: 172/92, heart rate 80 bpm LV: 162/5, LVEDP 8 SELECTIVE CORONARY ARTERIOGRAPHY: LEFT MAIN: The left main is a large caliber vessel which bifurcates into the LAD and circumflex. There is no significant stenosis. LEFT ANTERIOR DESCENDING CORONARY ARTERY: LAD is a large caliber vessel which wraps around to the apex. There is a proximal LAD 80% stenosis followed by a 70% stenosis and then 100% mid LAD stenosis. The point hope ira LAD only leads to a very small caliber diagonal branch. The proximal LAD portion appears to have had some progression since 2014 films. LEFT CIRCUMFLEX CORONARY ARTERY: Left circumflex is a large caliber vessel. There is a mid circumflex 30% stenosis. The circumflex gives off 3 OM branches. The proximal OM 3 as a 70-80% stenosis which appears similar to prior films from 2014. There are [id number] collaterals to the PLV and PDA. RIGHT CORONARY ARTERY: The right coronary artery is a small to moderate caliber vessel which gives off a PDA and PLV branch and is the dominant vessel. The mid RCA has a long tubular 50-60% stenosis and is very tortuous. There is a prior stent from the SVG to distal RCA with overlapping of the anastomosis site. At this site there is approximately 70-80% stenosis. There is ALIN 2-3 flow with competitive flow from the left. SVG to distal RCA: Known to be occluded and not imaged. Known to have a stent from the SVG into distal RCA at the anastomosis site. SVG to the OM 3: Known to be occluded and not imaged. SVG to diagonal 1: SVG to diagonal 1 is widely patent. There is backfilling of the proximal to mid LAD and septal perforators. There are some [id number] collaterals from the septals to the PDA. ARAUJO to LAD: Limited to LAD is widely patent. There is a 100% stenosis of the mid LAD without backfilling of the proximal LAD. The more proximal to mid LAD is back filled by the SVG to diagonal 1. No significant stenosis of the distal LAD. FINAL IMPRESSION: 1. Multi vessel CAD as described above with overall similar findings compared to 2014 catheterization. 2. Similar distal RCA being a small caliber vessel with prior stenting of SVG to RCA with 70-80% stenosis. This appears unchanged and would require wiring through SVG to RCA stent and would recommend medical treatment. 3. Some progression of proximal LAD 80% stenosis however only leads to an unprotected very small caliber diagonal branch and would recommend medical therapy. 4. Similar 70-80% stenosis of proximal OM3. 5. Patent SVG to diagonal and ARAUJO to LAD. PLAN: 1. Aggressive risk factor modification per most recent ACC/AHA guidelines. 2. Follow-up with primary plasma center nurse in the office in 1-2 weeks. 3. Would not recommend any intervention to the RCA as this would require going through and SVG to RCA stent. RCA appears well collateralized, similar to prior imaging. OM3 also appears similar to prior and would recommend medical therapy. If persistent angina OM3 appears 2mm in diameter and could consider intervention. Proximal LAD has progressed to 80% stenosis however only supplies very small caliber diagonal branch and would recommend medical therapy.
--- NOTE | 2019-11-30 17:21 | P.CRDCN ---
History of Present Illness History of present illness: This is Ariadna Pan PA-C dictating a consult on this patient The patient was interviewed and examined by me as well as by Dr. Le Case discussed with Dr. Le and he agrees with the plan of care HPI Patient is a 59-year-old male with a history significant for CAD status post CABG and stenting, hypertension, dyslipidemia, former smoker who presented with complaints of chest discomfort. He follows with Dr. Vidal as an outpatient. He states he was up [employer] this weekend and he noticed some increased fatigue but attributed this to a busy weekend. He did not have any chest discomfort or shortness of breath with activity. Last night he woke up with left-sided chest discomfort which he described as pressure. He denied any other symptoms, no shortness of breath, nausea, diaphoresis, dizziness or palpitations. He states the discomfort reminded him of the discomfort that brought him in with his previous [place] several years ago. He took nitroglycerin without any relief. Upon arrival to the emergency department. He was afebrile, pulse 59, respirations 18, blood pressure 172/87, oxygen saturation 99% on room air. EKG showed sinus mechanism with nonspecific changes inferiorly and anteriorly. No significant changes compared to previous EKG.Initial troponin 0.041, second troponin negative. Patient seen and examined resting in bed. He is currently chest pain-free. He has not had any further episodes of chest discomfort. No shortness of breath. No dizziness. ROS: No fevers, chills or rigors, no cough, phlegm or expectoration, no nausea, vomiting or diarrhea, no hematuria, dysuria, no musculoskeletal complaints, no strokes or seizures, no skin lesions. EXAMINATION: Patient is afebrile, pulse in the 60s, respirations 16, blood pressure 126/71, oxygen saturation 96% on room air Patient seen and examined resting in bed, in no acute distress Lungs are to auscultation bilaterally, no wheezing rhonchi or crackles appreciated No elevated JVD No lower extremity edema Abdomen soft and nontender to palpation REVIEW OF LABS, ECG & MEDICAL DATA WBC 7.7, hemoglobin 13.6, platelets 159, potassium 4.5, BUN 17, creatinine 0.94 Echocardiogram showed EF 40-45%, basal inferior hypokinesis IMPRESSION / ASSESSMENT: #1 chest discomfort with some typical features which reminded him of previous [place], abnormal troponin, no acute changes on EKG #2 history of CAD status post CABG and subsequent stenting #3 hypertension #4 dyslipidemia #5 hyperkalemia, resolved #6 ischemic cardiomyopathy PLAN: Continue heparin We will schedule him for coronary angiogram Continue statins and aspirin Continue beta blockers Monitor BMP Further recommendations based on the findings of the angiogram Past Medical History Past Medical History: Coronary Artery Disease (CAD), Hyperlipidemia, Hypertension Additional Past Medical History / Comment(s): basal and squamous skin cancer shoulder/back-removed, "heartburn", anxiety Last Myocardial Infarction Date:: 2013 History of Any Multi-Drug Resistant Organisms: None Reported Past Surgical History: Coronary Bypass/CABG, Heart Catheterization With Stent, Hernia Repair Additional Past Surgical History / Comment(s): Stent placed on 07/23/2013. H ernia repair at very young age Past Anesthesia/Blood Transfusion Reactions: No Reported Reaction Additional Past Anesthesia/Blood Transfusion Reaction / Comment(s): clausterphobia Date of Last Stent Placement:: 07/23/2013 Past Psychological History: Anxiety Smoking Status: Former smoker Past Alcohol Use History: Daily Past Drug Use History: None Reported - Past Family History Mother Family Medical History: Coronary Artery Disease (CAD), Hyperlipidemia, Hypertension Medications and Allergies Home Medications Medication Instructions Recorded Confirmed Type Atorvastatin [Lipitor] 80 mg PO HS #30 tab 07/27/13 11/30/19 Rx Nitroglycerin Sl Tabs [Nitrostat] 0.4 mg SUBLINGUAL Q5M PRN 12/23/15 11/30/19 History Metoprolol Tartrate 25 mg PO BID 12/24/17 11/30/19 History Ticagrelor [Brilinta] 60 mg PO BID 12/24/17 11/30/19 History lisinopriL [Zestril] 10 mg PO DAILY 12/24/17 11/30/19 History Aspirin EC [Ecotrin Low Dose] 81 mg PO DAILY 11/30/19 11/30/19 History Montelukast [Singulair] 10 mg PO DAILY 11/30/19 11/30/19 History Allergies Allergy/AdvReac Type Severity Reaction Status Date / Time No Known Allergies Allergy Verified 11/30/19 08:38 Physical Exam Vitals: Vital Signs Temp Pulse Pulse Pulse Resp BP BP 11/30/19 16:18 63 16 126/71 11/30/19 15:18 61 16 125/73 11/30/19 14:18 98.3 F 56 L 16 144/73 11/30/19 13:48 56 L 16 118/68 11/30/19 13:18 48 L 16 110/56 11/30/19 13:03 58 L 16 121/65 11/30/19 12:48 50 L 16 110/69 11/30/19 12:47 98.2 F 49 L 16 116/66 11/30/19 12:33 49 L 16 116/66 11/30/19 09:00 98.0 F 63 16 150/89 11/30/19 04:00 97.6 F 51 L 18 134/79 11/30/19 02:18 97.6 F 51 L 18 134/74 11/30/19 02:06 63 18 165/86 11/30/19 01:16 55 L 11/30/19 00:49 98.4 F 59 L 18 172/87 Pulse Ox 11/30/19 16:18 96 11/30/19 15:18 97 11/30/19 14:18 97 11/30/19 13:48 96 11/30/19 13:18 96 11/30/19 13:03 95 11/30/19 12:48 96 11/30/19 12:47 95 11/30/19 12:33 96 11/30/19 09:00 98 11/30/19 04:00 97 11/30/19 02:18 97 11/30/19 02:06 98 11/30/19 01:16 11/30/19 00:49 99 Intake and Output 11/30/19 11/30/19 11/30/19 06:59 14:59 22:59 Intake Total 159.604 Balance 159.604 Intake: IV 100 Intake, IV Titration 59.604 Amount Heparin Sod,Pork in 0.45% 59.604 NaCl 25,000 unit In 0.45 % NaCl 1 250ml.bag @ 9 UNITS/KG/HR 9.798 mls/hr IV .Q24H [facility] Rx#: [id number] Other: Voiding Method Toilet Toilet # Voids 1 Weight 111.7 kg Results 11/30/19 00:55 11/30/19 07:46 Cardiac Enzymes 11/30/19 11/30/19 11/30/19 Range/Units 00:55 00:55 03:32 AST 43 (17-59) U/L Troponin I 0.041 H* <0.012 (0.000-0.034) ng/mL Coagulation 11/30/19 11/30/19 11/30/19 Range/Units 00:55 07:46 14:24 PT 9.6 (9.0-12.0) sec APTT 24.5 41.4 H 57.1 H (22.0-30.0) sec CBC 11/30/19 Range/Units 00:55 WBC 7.7 (3.8-10.6) k/uL RBC 4.37 (4.30-5.90) m/uL Hgb 13.6 (13.0-17.5) gm/dL Hct 41.7 (39.0-53.0) % Plt Count 159 (150-450) k/uL Comprehensive Metabolic Panel 11/30/19 11/30/19 Range/Units 00:55 07:46 Sodium 138 141 (137-145) mmol/L Potassium 5.6 H 4.5 (3.5-5.1) mmol/L Chloride 108 H 108 H (98-107) mmol/L Carbon Dioxide 24 26 (22-30) mmol/L BUN 18 17 (9-20) mg/dL Creatinine 0.90 0.94 (0.66-1.25) mg/dL Glucose 111 H 109 H (74-99) mg/dL Calcium 9.1 9.3 (8.4-10.2) mg/dL AST 43 (17-59) U/L ALT 30 (4-49) U/L Alkaline Phosphatase 61 (38-126) U/L Total Protein 6.6 (6.3-8.2) g/dL Albumin 4.0 (3.5-5.0) g/dL Current Medications Generic Name Dose Route Start Last Admin Trade Name Freq PRN Reason Stop Dose Admin Alprazolam 0.25 mg 11/30/19 10:18 Xanax PO Q6HR PRN Mild Anxiety Alprazolam 0.5 mg 11/30/19 10:18 Xanax PO Q6HR PRN Moderate Anxiety Aspirin 81 mg 12/01/19 09:00 Aspirin PO DAILY ANITA Atorvastatin Calcium 80 mg 11/30/19 21:00 Lipitor PO HS [facility] Heparin Sodium (Porcine) 0 unit 11/30/19 02:09 11/30/19 09:03 Heparin IV 2,700 unit PER PROTOCOL PRN Administration Low PTT Protocol Heparin Sodium/Sodium Chloride 250 mls @ 9.798 mls/hr 11/30/19 02:15 11/30/19 09:02 25,000 unit/ Sodium Chloride IV 11 units/kg/hr .Q24H ANITA 11.975 mls/hr Titration Protocol 9 UNITS/KG/HR Sodium Chloride 1,000 ml/ IV 1,000 mls @ 111.7 mls/hr 11/30/19 10:18 11/30/19 10:45 Solution IV 11/30/19 19:15 111.7 mls/hr .Q8H58M ONE Administration 1 ML/KG/HR Lisinopril 10 mg 11/30/19 09:00 11/30/19 09:03 Zestril PO 10 mg DAILY [facility] Administration Metoprolol Tartrate 25 mg 11/30/19 09:00 11/30/19 09:03 Lopressor PO 25 mg BID ANITA Administration Miscellaneous Information 1 each 11/30/19 12:33 Rx Info: Iv Contrast Was Given MISCELLANE 12/02/19 12:33 DAILY PRN Per Protocol Montelukast Sodium 10 mg 12/01/19 09:00 Singulair PO DAILY [facility] Nitroglycerin 0.4 mg 11/30/19 08:15 Nitrostat SUBLINGUAL Q5M PRN Pain Control Nitroglycerin 0.4 mg 11/30/19 10:18 Nitrostat SUBLINGUAL Q5M PRN Chest Pain Intake and Output 11/30/19 11/30/19 11/30/19 06:59 14:59 22:59 Intake Total 159.604 Balance 159.604 Intake: IV 100 Intake, IV Titration 59.604 Amount Heparin Sod,Pork in 0.45% 59.604 NaCl 25,000 unit In 0.45 % NaCl 1 250ml.bag @ 9 UNITS/KG/HR 9.798 mls/hr IV .Q24H [facility] Rx#: [id number] Other: Voiding Method Toilet Toilet # Voids 1 Weight 111.7 kg 11/30/19 00:55 11/30/19 07:46
[2019-11-30] MEDS ORDERED: NON FORMULARY DRUG (Ticagrelor [Brilinta] 60 MG) PO SCH (21:00)
[2019-11-30] MEDS ORDERED: ATORVASTATIN 80 MG TAB PO SCH (21:00)
[2019-12-01 00:43] VITALS: RESP 18
[2019-12-01 06:46] LABS: Basophils # (A) 0.1 k/uL (0-0.2); Basophils % (A) 1 %; Eosinophils # (A) 0.5 k/uL (0-0.7); Eosinophils % (A) 6 %; HCT 43.5 % (39.0-53.0); HGB 13.8 gm/dL (13.0-17.5); Lymphocytes # (A) 1.8 k/uL (1.0-4.8); Lymphocytes % (A) 23 %; MCH 30.5 pg (25.0-35.0); MCHC 31.7 g/dL (31.0-37.0); MCV 96.3 fL (80.0-100.0); Mean Platelet Volume 7.4; Monocytes # (A) 0.5 k/uL (0-1.0); Monocytes % (A) 6 %; Neutrophils # (A) 5.3 k/uL (1.3-7.7); Neutrophils % (A) 65 %; Platelet Count 149 k/uL (150-450); RBC 4.52 m/uL (4.30-5.90); RDW 13.5 % (11.5-15.5); WBC 8.2 k/uL (3.8-10.6)
[2019-12-01 07:56] LABS: African American GFR (CKD) >90 (>60 ml/min/1.73 sqM); Anion Gap 6 mmol/L; Blood Urea Nitrogen 17 mg/dL (9-20); Calcium 8.5 mg/dL (8.4-10.2); Carbon Dioxide 26 mmol/L (22-30); Chloride 107 mmol/L (98-107); Cholesterol 134 mg/dL (<200); Glucose 113 mg/dL (74-99); HDL Cholesterol 36 mg/dL (40-60); LDL Cholesterol,Calculated 69 mg/dL (0-99); Non-African American GFR(CKD) >90 (>60 ml/min/1.73 sqM); Potassium 4.4 mmol/L (3.5-5.1); Sodium 139 mmol/L (137-145); Triglycerides 143 mg/dL (<150)
[2019-12-01] MEDS ORDERED: ASPIRIN 325 MG TAB PO SCH (09:00)
[2019-12-01] MEDS ORDERED: ASPIRIN 81 MG PO SCH (09:00)
[2019-12-01] MEDS ORDERED: MONTELUKAST 10 MG TAB PO SCH (09:00)
[2019-12-01] MEDS: METOPROLOL TARTRATE 25 MG TAB PO SCH (09:09)
[2019-12-01] MEDS: lisinopriL 10 MG TAB PO SCH (09:09)
--- NOTE | 2019-12-01 10:35 | P.DS ---
Providers Date of admission: 11/30/19 02:09 Attending physician: Valentin Wallace Consults: 11/30/19 02:04 Consult Physician Urgent Consulting Provider: [facility] Consult Reason/Comments: NSTEMI Do you want consulting provider notified?: Yes, Notify in am [facility] Course: 59-year-old male came in with compensative chest pain in the side of the chest more in severity and he woke up from sleep because of this chest pain. Patient had a previous history of coronary artery disease stents in the past as well as CABG in the past patient last stress test was in 2018 patient is found to have mildly elevated troponin because of which patient was started on IV heparin and patient is going for cardiac catheterization today. Patient denied any associated lightheadedness diaphoresis or shortness of breath associated with his chest pain chest pain is pressure-like sensation patient doesn't have any associated nausea or vomiting. Patient doesn't have pneumonia on the chest x- ray.. 12/01/2019 Patient had a cardiac catheterization which showed significant withdrawals with vascular disease and there are some collaterals too although patient didn't unde rgo any intervention. Patient is cleared for discharge patient will be discharged today. Please refer to cardiac catheterization report for further details patient is chest pain-free PHYSICAL EXAMINATION: GENERAL: The patient is alert and oriented x3, not in any acute distress. Well developed, well nourished. HEENT: Pupils are round and equally reacting to light. EOMI. No scleral icterus. No conjunctival pallor. Normocephalic, atraumatic. No pharyngeal erythema. No thyromegaly. CARDIOVASCULAR: S1 and S2 present. No murmurs, rubs, or gallops. PULMONARY: Chest is clear to auscultation, no wheezing or crackles. ABDOMEN: Soft, nontender, nondistended, normoactive bowel sounds. No palpable organomegaly. MUSCULOSKELETAL: No joint swelling or deformity. EXTREMITIES: No cyanosis, clubbing, or pedal edema. NEUROLOGICAL: Gross neurological examination did not reveal any focal deficits. SKIN: No rashes. Assessment and Plan Plan: -Possible non-ST elevation microinfarction with mildly elevated troponin and patient is status post cardiac catheterization please refer to the catheterization report for further details and no intervention was done and patient will be discharged today -Hyperkalemia: Secondary to hemolysis repeat potassium is within normal limits and patient can be resumed on lisinopril -Hypertension -Hyperlipidemia -History of coronary artery disease with previous stents and coronary artery bypass grafting in the past Patient Condition at Discharge: Stable Plan - Discharge Summary Discharge Rx Participant: No New Discharge Prescriptions: Continue Atorvastatin [Lipitor] 80 mg PO HS #30 tab Nitroglycerin Sl Tabs [Nitrostat] 0.4 mg SUBLINGUAL Q5M PRN PRN Reason: Pain Control Ticagrelor [Brilinta] 60 mg PO BID Metoprolol Tartrate 25 mg PO BID lisinopriL [Zestril] 10 mg PO DAILY Montelukast [Singulair] 10 mg PO DAILY Aspirin EC [Ecotrin Low Dose] 81 mg PO DAILY Discharge Medication List Atorvastatin [Lipitor] 80 mg PO HS #30 tab 07/27/13 [Rx] Nitroglycerin Sl Tabs [Nitrostat] 0.4 mg SUBLINGUAL Q5M PRN 12/23/15 [History] Metoprolol Tartrate 25 mg PO BID 12/24/17 [History] Ticagrelor [Brilinta] 60 mg PO BID 12/24/17 [History] lisinopriL [Zestril] 10 mg PO DAILY 12/24/17 [History] Aspirin EC [Ecotrin Low Dose] 81 mg PO DAILY 11/30/19 [History] Montelukast [Singulair] 10 mg PO DAILY 11/30/19 [History] Follow up Appointment(s)/Referral(s): Marty Bacon DO [Primary Care Provider] - 3 Days Discharge Disposition: HOME SELF-CARE
[2019-12-01 10:47] VITALS: BP 134/64; PULSE 58; TEMP 98.5
[2019-12-01] MEDS ORDERED: BRILINTA 60 MG PO SCH (11:00)
--- NOTE | 2019-12-01 13:26 | P.PN ---
Subjective Progress Note Date: 12/01/19 CHIEF COMPLAINT: Chest pain HISTORY OF PRESENT ILLNESS: Patient is status post cardiac catheterization with Dr. Rodas. Patient underwent a multivessel coronary artery disease with overall similar findings compared to 2013 catheterization. Aggressive risk fa ctor modification and medical management was recommended. Patient examined at bedside. He denies chest pain. Denies shortness of breath. Vital signs are stable. PHYSICAL EXAM: VITAL SIGNS: Reviewed. GENERAL: Well-developed in no acute distress. NECK: Supple. No JVD or thyromegaly LUNGS: Respirations even and unlabored. Lungs essentially clear to auscultation bilaterally. HEART: Regular rate and rhythm. S1 and S2 heard. EXTREMITIES: Normal range of motion. No clubbing or cyanosis. Peripheral pulses intact. No lower extremity edema. Left radial cath site clean dry with pulse present. ASSESSMENT: Chest pain, status post cardiac cath revealing multivessel coronary artery disease with overall similar findings compared to 2014 catheterization History of CAD, status post CABG and subsequent stenting Hypertension Hyperlipidemia Ischemic cardiomyopathy PLAN: Continue current cardiac medications Patient is stable for discharge home today from a cardiac standpoint. He is to follow up on an outpatient basis. Nurse practitioner note has been reviewed by physician. Signing provider agrees with the documented findings, assessment, and plan of care. Objective - Vital Signs Vital signs: Vital Signs Temp 98.5 F 12/01/19 08:00 Pulse 58 L 12/01/19 08:00 Resp 18 12/01/19 03:42 BP 134/64 12/01/19 08:00 Pulse Ox 96 12/01/19 08:00 Intake & Output 11/30/19 12/01/19 12/01/19 18:59 06:59 18:59 Intake Total 399.604 409.446 250 Balance 399.604 409.446 250 Weight 111.4 kg Intake: IV 100 Intake, IV Titration 59.604 169.446 150 Amount Heparin Sod,Pork in 0.45% 59.604 169.446 NaCl 25,000 unit In 0.45 % NaCl 1 250ml.bag @ 9 UNITS/KG/HR 9.798 mls/hr IV .Q24H [facility] Rx#: [id number] Sodium Chloride 0.9% 1, 150 000 ml In Empty Bag 1 bag @ 1 ML/KG/HR 111.7 mls/ hr IV .Q8H58M [facility] Rx#: [id number] Oral 240 240 100 Other: Voiding Method Toilet Toilet # Voids 1 1 - Labs CBC & Chem 7: 12/01/19 06:07 12/01/19 06:07 Labs: Abnormal Lab Results - Last 24 Hours (Table) 11/30/19 12/01/19 12/01/19 Range/Units 14:24 06:07 06:07 Plt Count 149 L (150-450) k/uL APTT 57.1 H (22.0-30.0) sec Glucose 113 H (74-99) mg/dL HDL Cholesterol 36 L (40-60) mg/dL 12/01/19 Range/Units 06:07 Plt Count (150-450) k/uL APTT 50.7 H (22.0-30.0) sec Glucose (74-99) mg/dL HDL Cholesterol (40-60) mg/dL
== END 2019-12-01 12:23 | disposition home or self-care (01) ==
LOC: EC 00:49 → 3SCARD 02:09
PROVIDERS: ADMIT Hospitalist; ATTEND Hospitalist
DX: R07.9 Chest pain, unspecified (principal); E78.5 Hyperlipidemia, unspecified; E87.5 Hyperkalemia; I10 Essential (primary) hypertension; I25.10 Atherosclerotic heart disease of native coronary artery without angina pectoris; I25.2 Old myocardial infarction; I25.5 Ischemic cardiomyopathy; Z79.02 Long term (current) use of antithrombotics/antiplatelets; Z79.82 Long term (current) use of aspirin; Z79.899 Other long term (current) drug therapy; Z82.49 Family history of ischemic heart disease and other diseases of the circulatory system; Z87.891 Personal history of nicotine dependence; Z95.1 Presence of aortocoronary bypass graft; Z95.5 Presence of coronary angioplasty implant and graft
CPT/HCPCS: 96376; 96365; 96366; 93005 ×3; 99285; 36415; 93306; 93459; 83880; 80061; 80053; 80048 ×2; 83690; 83735; 84484; 85025 ×2; 85610; 85730 ×2; 71046; G0378 ×2; C1769; C1894; J2250; J1644 ×3; J2001; J3010; Q9950; Q9967

== ENCOUNTER 2021-03-29 03:09 | Emergency (ER) | payer BC ==
[2021-03-29 03:15] VITALS: BP 168/81; PULSE 79; RESP 20; TEMP 98.2
--- NOTE | 2021-03-29 03:42 | ED ---
Recheck HPI - General Chief Complaint: Recheck/Abnormal Lab/Rx Stated Complaint: covid exposure, wants swab Time Seen by Provider: 03/29/21 03:36 Source: patient Mode of arrival: ambulatory Limitations: no limitations - History of Present Illness Initial Comments: 61-year-old male patient presented requesting a COVID swab. States that he was exposed to someone with active COVID about 3 days ago. States that the person he was exposed to this evening, he wanted to get tested just as a precaution. He states he has had upper respiratory congestion for the last two weeks. He did test negative two weeks ago. He did receive both Moderna vaccines. No booster yet. He denies any significant cough or shortness of breath. He does have history of CAD and did have CABG so he was concerned. - Related Data Home Medications Medication Instructions Recorded Confirmed Nitroglycerin Sl Tabs [Nitrostat] 0.4 mg SUBLINGUAL Q5M PRN 12/23/15 11/30/19 Metoprolol Tartrate 25 mg PO BID 12/24/17 11/30/19 Ticagrelor [Brilinta] 60 mg PO BID 12/24/17 11/30/19 lisinopriL [Zestril] 10 mg PO DAILY 12/24/17 11/30/19 Aspirin EC [Ecotrin Low Dose] 81 mg PO DAILY 11/30/19 11/30/19 Montelukast [Singulair] 10 mg PO DAILY 11/30/19 11/30/19 Previous Rx's Medication Instructions Recorded Atorvastatin [Lipitor] 80 mg PO HS #30 tab 07/27/13 Allergies Allergy/AdvReac Type Severity Reaction Status Date / Time No Known Allergies Allergy Verified 03/29/21 03:10 Review of Systems ROS Statement: Those systems with pertinent positive or pertinent negative responses have been documented in the HPI. ROS Other: All systems not noted in ROS Statement are negative. Past Medical History Past Medical History: Coronary Artery Disease (CAD), Hyperlipidemia, Hypertension Additional Past Medical History / Comment(s): basal and squamous skin cancer shoulder/back-removed, "heartburn", anxiety Last Myocardial Infarction Date:: 2013 History of Any Multi-Drug Resistant Organisms: None Reported Past Surgical History: Coronary Bypass/CABG, Heart Catheterization With Stent, Hernia Repair Additional Past Surgical History / Comment(s): Stent placed on 07/23/2013. Hernia repair at very young age Past Anesthesia/Blood Transfusion Reactions: No Reported Reaction Additional Past Anesthesia/Blood Transfusion Reaction / Comment(s): clausterphobia Date of Last Stent Placement:: 07/23/2013 Past Psychological History: Anxiety Smoking Status: Former smoker Past Alcohol Use History: Daily Past Drug Use History: None Reported - Past Family History Mother Family Medical History: Coronary Artery Disease (CAD), Hyperlipidemia, Hypertension General Exam Limitations: no limitations General appearance: alert, in no apparent distress, other (This is a well- developed, well-nourished adult male in no acute distress.) Eye exam: Present: normal appearance, PERRL, EOMI. Absent: scleral icterus, conjunctival injection, periorbital swelling ENT exam: Present: normal exam, normal oropharynx, mucous membranes moist Respiratory exam: Present: normal lung sounds bilaterally. Absent: respiratory distress, wheezes, rales, rhonchi, stridor Cardiovascular Exam: Present: regular rate, normal rhythm, normal heart sounds. Absent: systolic murmur, diastolic murmur, rubs, gallop, clicks GI/Abdominal exam: Present: soft, normal bowel sounds. Absent: distended, tenderness, guarding, rebound, rigid Neurological exam: Present: alert, oriented X3, CN II-XII intact Psychiatric exam: Present: normal affect, normal mood Skin exam: Present: warm, dry, intact, normal color. Absent: rash Course Vital Signs 03/29/21 03:11 Temperature 98.2 F Pulse Rate 79 Respiratory 20 Rate Blood Pressure 168/81 O2 Sat by Pulse 96 Oximetry Medical Decision Making - Medical Decision Making 61-year-old male patient presents for a COVID-19 test due to recent exposure. Does have some upper respiratory symptoms or has been having this for the last couple of weeks. Physical examination is unremarkable. Tested negative. He'll be discharged. This doctor as needed. Return parameters were discussed in detail. He verbalizes understanding and agrees with this plan. My attending is Dr. Cordon. - Lab Data Lab Results 03/29/21 Range/Units 03:16 Coronavirus (PCR) Not Detected (Not Detectd) Disposition Clinical Impression: Encounter for laboratory testing for COVID-19 virus Disposition: HOME SELF-CARE Condition: Good Instructions (If sedation given, give patient instructions): Upper Respiratory Infection (ED) Additional Instructions: Follow up with your primary care physician for recheck in 1-2 days. Return for any new, worsening, or concerning symptoms. Is patient prescribed a controlled substance at d/c from ED?: No Referrals: Marty Bacon DO [Primary Care Provider] - 1-2 days Time of Disposition: 04:18
== END 2021-03-29 04:22 | disposition home or self-care (01) ==
LOC: EC 03:09
DX: Z11.52 Encounter for screening for COVID-19 (principal); Z20.822 Contact with and (suspected) exposure to COVID-19; I10 Essential (primary) hypertension; I25.10 Atherosclerotic heart disease of native coronary artery without angina pectoris; E78.5 Hyperlipidemia, unspecified; F41.9 Anxiety disorder, unspecified; Z87.891 Personal history of nicotine dependence; Z79.82 Long term (current) use of aspirin; Z79.899 Other long term (current) drug therapy
CPT/HCPCS: 87635; 99282